=== PATIENT | male | born 1990 | race Native Hawaiian/Other Pacific Islander ===

== ENCOUNTER 2020-12-02 12:00 | Outpatient (CLI) | payer BC, OTHER | END 2020-12-02 15:46 | disposition home or self-care (01) | LOC: INF 12:00 | PROVIDERS: ATTEND Internal Medicine | DX: Z23 Encounter for immunization (principal) | CPT/HCPCS: 96372 ==

== ENCOUNTER 2020-12-26 10:22 | Outpatient (CLI) | payer BC, OTHER | END 2020-12-26 23:59 | disposition home or self-care (01) | LOC: INF 10:22 | PROVIDERS: ATTEND Internal Medicine | DX: Z23 Encounter for immunization (principal) | CPT/HCPCS: 96372 ==